=== PATIENT | male | born 1990 | race African-American/Black ===

== ENCOUNTER 2017-12-24 14:42 | Emergency (ER) | payer MEDICAID, OTHER ==
[~2017-12-24] VITALS: Ht 180.3 cm; Wt 63.5 kg
[2017-12-24 14:57] VITALS: BP 140/88
== END 2017-12-24 22:13 | disposition home or self-care (01) ==
LOC: ER 14:42
DX: R51 Headache (principal); G93.89 Other specified disorders of brain; Z87.820 Personal history of traumatic brain injury
CPT/HCPCS: 70450

== ENCOUNTER 2017-12-25 13:13 | Emergency (ER) | payer MEDICAID ==
[~2017-12-25] VITALS: Ht 167.6 cm; Wt 63.5 kg
[2017-12-25] MEDS ORDERED: SODIUM CHLORIDE 0.9% 1,000 ML IV ONE ×2 (13:29)
[2017-12-25] MEDS ORDERED: PROMETHAZINE HCL 25 MG/ML 1ML IV ONE (13:30)
[2017-12-25 13:33] VITALS: BP 104/69
[2017-12-25 15:08] LABS: Albumin 3.5 g/dL (3.4-5.0); Calcium 9.3 mg/dL (8.5-10.1); Potassium 3.6 mmol/L (3.5-5.1)
[2017-12-25 15:10] LABS: Basophils # (auto) 0 uL; Basophils % (auto) 0.4 % (0.0-2.0); Eosinophils # (auto) 0 uL; Eosinophils % (auto) 0.1 % (0.0-7.0); Hematocrit 44.7 % (41.0-53.0); Hemoglobin 15.1 g/dL (13.5-17.5); Lymphocytes # (auto) 1.6 uL; Lymphocytes % (auto) 15.6 % (10.0-50.0); Mean Corpuscular Hemoglobin 29.9 pg (28.0-32.0); Mean Corpuscular Hgb Conc. 33.8 g/dL (32.0-36.0); Mean Corpuscular Volume 88.6 fL (80.0-100.0); Monocytes # (auto) 0.9 uL; Monocytes % (auto) 9.4 % (0.0-12.0); Neutrophils # (auto) 7.5 uL; Neutrophils % (auto) 74.5 % (37.0-80.0); Nucleated Red Blood Cells % 0.1 %; Platelet Count (auto) 315 10^3/uL (140-450); Red Blood Cells 5.04 10^6/uL (4.5-5.90); Red Cell Distribution Width 13.8 % (11.8-14.3)
[2017-12-25 15:13] LABS: Bilirubin, Total 0.6 mg/dL (0.2-1.0); Total Protein 8.4 g/dL (6.4-8.2)
== END 2017-12-25 15:57 | disposition left against medical advice (07) ==
LOC: ER 13:13 → EDBD 13:13 → EDUNIT# 13:13 → ER 15:57
DX: R11.2 Nausea with vomiting, unspecified (principal); R10.13 Epigastric pain; G93.89 Other specified disorders of brain; R51 Headache
CPT/HCPCS: 36415; 70450; 71045; 80053; 85025

== ENCOUNTER 2017-12-25 18:24 | Emergency (ER) | payer MEDICAID ==
[~2017-12-25] VITALS: Ht 180.3 cm; Wt 63.5 kg
[2017-12-25 18:57] VITALS: BP 110/62
== END 2017-12-25 20:20 | disposition left against medical advice (07) ==
LOC: ER 18:24
DX: R51 Headache (principal); R10.9 Unspecified abdominal pain; Z53.21 Procedure and treatment not carried out due to patient leaving prior to being seen by health care provider

== ENCOUNTER 2017-12-26 11:22 | Inpatient (IN) | payer MEDICAID ==
[~2017-12-26] VITALS: Ht 180.3 cm; Wt 59.2 kg
[2017-12-26 12:11] LABS: Basophils # (auto) 0.1 uL; Basophils % (auto) 0.6 % (0.0-2.0); Eosinophils # (auto) 0 uL; Eosinophils % (auto) 0.1 % (0.0-7.0); Hematocrit 43.6 % (41.0-53.0); Hemoglobin 14.6 g/dL (13.5-17.5); Lymphocytes # (auto) 1.2 uL; Lymphocytes % (auto) 12.4 % (10.0-50.0); Mean Corpuscular Hemoglobin 29.6 pg (28.0-32.0); Mean Corpuscular Hgb Conc. 33.5 g/dL (32.0-36.0); Mean Corpuscular Volume 88.2 fL (80.0-100.0); Monocytes # (auto) 1.1 uL; Monocytes % (auto) 11.2 % (0.0-12.0); Neutrophils # (auto) 7.4 uL; Neutrophils % (auto) 75.7 % (37.0-80.0); Platelet Count (auto) 309 10^3/uL (140-450); Red Blood Cells 4.94 10^6/uL (4.5-5.90); Red Cell Distribution Width 13.9 % (11.8-14.3); White Blood Cell 9.7 10^3/uL (4.4-10.8)
[2017-12-26 12:31] LABS: Alanine Aminotransferase 37 U/L (16-61); Albumin 3.3 g/dL (3.4-5.0); Alkaline Phosphatase 69 U/L (45-117); Anion Gap 11 (5-15); Aspartate Aminotransferase 12 U/L (15-37); BUN/Creatinine Ratio 18.1; Bilirubin, Total 0.5 mg/dL (0.2-1.0); Blood Alcohol < 3.0 mg/dL (0-5); Blood Urea Nitrogen 17 mg/dL (7-18); Calcium 8.7 mg/dL (8.5-10.1); Carbon Dioxide 28 mmol/L (21-32); Chloride 103 mmol/L (98-107); GFR African American 123 mL/min; GFR Non-African American 102 mL/min; Glucose 96 mg/dL (74-106); Potassium 3.5 mmol/L (3.5-5.1); Sodium 142 mmol/L (136-145); Total Protein 7.7 g/dL (6.4-8.2)
[2017-12-26] MEDS ORDERED: SODIUM CHLORIDE 0.9% 1,000 ML IVB ONE (12:35)
[2017-12-26] MEDS ORDERED: ONDANSETRON HCL 4 MG/2 ML VIAL ONE (13:06)
[2017-12-26] MEDS ORDERED: ONDANSETRON HCL 4 MG/2 ML VIAL IV ONE (13:15)
[2017-12-26 13:27] LABS: INR 1.69 (0.9-1.15); Partial Thromboplastin Time 39.2 sec (22.64-33.71); Prothrombin Time 18.5 sec (9.37-12.3)
[2017-12-26] MEDS ORDERED: IOHEXOL 300 MG/ML 100ML BOTTLE IJ ONE (13:45)
[2017-12-26] MEDS ORDERED: ENOXAPARIN SOD 80 MG/0.8ML SYRINGE SC ONE (15:00)
[2017-12-26] MEDS ORDERED: MORPHINE SULFATE 4 MG/ML SYR/VIAL IV PRN (15:45)
[2017-12-26] MEDS ORDERED: LORazepam 2MG/ML-1ML VIAL IV PRN (15:45)
[2017-12-26] MEDS ORDERED: NITROGLYCERIN 0.4 MG SL TAB SL PRN (15:45)
[2017-12-26] MEDS ORDERED: DOCUSATE SOD 100 MG CAP PO PRN (15:45)
[2017-12-26] MEDS ORDERED: cefTRIAXone 1GM/10ml IVPUSH 10 ML IV ONE (16:00)
[2017-12-26] MEDS: SODIUM CHLORIDE 0.9% 1,000 ML IV SCH (16:14)
[2017-12-26] MEDS ORDERED: AZITHROMYCIN 500MG/ 250ML 250 ML IV ONE (16:30)
[2017-12-26 16:40] LABS: Urine Bacteria NONE SEEN /hpf (None Seen); Urine Blood Negative /uL (Negative); Urine Mucus FEW (None Seen); Urine WBC 1 /hpf (0 - 3)
[2017-12-26 16:42] LABS: Urine Specific Gravity > 1.050 (1.001-1.035)
[2017-12-26 16:57] LABS: Alcohol, Urine < 3.0 mg/dL (0-5); Amphetamine Screen, Urine NEGATIVE (NEGATIVE); Barbiturate Scree,Urine NEGATIVE (NEGATIVE); Benzodiazephine Screen, Urine NEGATIVE (NEGATIVE); Cannabinoid Screen, Urine POSITIVE (NEGATIVE); Cocaine Screen, Urine NEGATIVE (NEGATIVE); Opiate Scree,Urine POSITIVE (NEGATIVE); Phencyclidine Screen, Urine NEGATIVE (NEGATIVE)
[2017-12-26] MEDS ORDERED: SODIUM CHLORIDE 0.9% 1,000 ML IV ONE (18:15)
[2017-12-26] MEDS ORDERED: HEPARIN Sod PEDiatric flush 10 UNITS/ML 1ML VIAL IV ONE (19:45)
[2017-12-26] MEDS: MORPHINE SULFATE 4 MG/ML SYR/VIAL IV PRN (20:43)
[2017-12-26] MEDS: ONDANSETRON HCL 4 MG/2 ML VIAL IV PRN (20:43)
[2017-12-26] MEDS: FAMOTIDINE 20 MG TAB PO SCH (23:31)
[2017-12-26] MEDS: ENOXAPARIN SOD 60 MG/0.6 ML SYRINGE SC SCH (23:32)
[2017-12-27 07:42] LABS: Hemoglobin 13.6 g/dL (13.5-17.5); Mean Corpuscular Hemoglobin 30.1 pg (28.0-32.0); Mean Corpuscular Volume 88.4 fL (80.0-100.0); Platelet Count (auto) 295 10^3/uL (140-450); Red Blood Cells 4.53 10^6/uL (4.5-5.90); Red Cell Distribution Width 13.6 % (11.8-14.3)
[2017-12-27 07:50] LABS: Albumin 2.9 g/dL (3.4-5.0); BUN/Creatinine Ratio 16.4; Bilirubin, Total 0.5 mg/dL (0.2-1.0); Calcium 8.1 mg/dL (8.5-10.1); Potassium 3.6 mmol/L (3.5-5.1)
[2017-12-27 07:55] LABS: Band Neutrophils % (manual) 0; Basophils % (manual) 0 (0.0-2.0); Blast Cells 0; Eosinophils % (manual) 0 (0-7); Metamyelocytes % 0; Myelocytes % 0; Promyelocytes % 0; Reactive Lymphocytes 0
[2017-12-27] MEDS: cefTRIAXone 1GM/10ml IVPUSH 10 ML IV SCH (08:43)
[2017-12-27] MEDS: SODIUM CHLORIDE 0.9% 1,000 ML IV SCH (08:43)
[2017-12-27] MEDS: AZITHROMYCIN 500MG/ 250ML 250 ML IV SCH (09:38)
[2017-12-27] MEDS: ENOXAPARIN SOD 60 MG/0.6 ML SYRINGE SC SCH (09:44)
[2017-12-27] MEDS: FAMOTIDINE 20 MG TAB PO SCH ×2 (09:44→22:30)
[2017-12-27] MEDS: MULTIPLE VITAMIN TAB PO SCH (09:44)
[2017-12-27] MEDS: HYDROcodone-ACET 5/325MG TAB PO PRN (11:27)
[2017-12-27 13:45] LABS: Lymphocytes % (manual) 19 (10.0-50.0); Monocytes % (manual) 9 (0-12)
[2017-12-27] MEDS: MORPHINE SULFATE 4 MG/ML SYR/VIAL IV PRN (14:07)
[2017-12-27] MEDS: HEPARIN DRIP/D5W 100UNITS/ML 250 ML IV SCH (14:48)
[2017-12-27] MEDS ORDERED: HEPARIN SODIUM (PORCINE) 5000 UNITS/ML 1ML VIAL IV ONE (15:00)
[2017-12-27 15:49] LABS: INR 1.9 (0.9-1.15); Partial Thromboplastin Time 45.7 sec (22.64-33.71); Prothrombin Time 20.8 sec (9.37-12.3)
[2017-12-27 18:21] VITALS: BP 122/79
[2017-12-27 20:00] VITALS: BP 124/56
[2017-12-27] MEDS: ACETAMINOPHEN 325 MG TAB PO PRN (20:49)
[2017-12-27 23:36] LABS: INR 1.76 (0.9-1.15); Prothrombin Time 19.3 sec (9.37-12.3)
[2017-12-27 23:45] LABS: Partial Thromboplastin Time 120.4 sec (22.64-33.71)
[2017-12-28 00:02] VITALS: BP 100/65
[2017-12-28 04:25] VITALS: BP 102/67
[2017-12-28] MEDS: MORPHINE SULFATE 4 MG/ML SYR/VIAL IV PRN (04:31)
[2017-12-28] MEDS: SODIUM CHLORIDE 0.9% 1,000 ML IV SCH ×2 (04:31→17:53)
[2017-12-28 06:45] LABS: Basophils # (auto) 0.1 uL; Basophils % (auto) 1.9 % (0.0-2.0); Eosinophils # (auto) 0.1 uL; Eosinophils % (auto) 1.4 % (0.0-7.0); Hematocrit 38.4 % (41.0-53.0); Lymphocytes # (auto) 1.6 uL; Lymphocytes % (auto) 29.8 % (10.0-50.0); Mean Corpuscular Hemoglobin 29.9 pg (28.0-32.0); Mean Corpuscular Hgb Conc. 33.9 g/dL (32.0-36.0); Mean Corpuscular Volume 88.1 fL (80.0-100.0); Monocytes # (auto) 0.6 uL; Monocytes % (auto) 10.9 % (0.0-12.0); Nucleated Red Blood Cells % 0.2 %; Platelet Count (auto) 233 10^3/uL (140-450); Red Blood Cells 4.36 10^6/uL (4.5-5.90); Red Cell Distribution Width 13.3 % (11.8-14.3); White Blood Cell 5.4 10^3/uL (4.4-10.8)
[2017-12-28 07:00] LABS: Potassium 3.6 mmol/L (3.5-5.1)
[2017-12-28 07:06] LABS: Albumin 2.7 g/dL (3.4-5.0); BUN/Creatinine Ratio 11.3; Calcium 8.4 mg/dL (8.5-10.1)
[2017-12-28 07:27] LABS: Bilirubin, Total 0.6 mg/dL (0.2-1.0); Total Protein 6.7 g/dL (6.4-8.2)
[2017-12-28] MEDS: ACETAMINOPHEN 325 MG TAB PO PRN (07:39)
[2017-12-28 08:20] LABS: INR 1.71 (0.9-1.15); Partial Thromboplastin Time 53.3 sec (22.64-33.71); Prothrombin Time 18.7 sec (9.37-12.3)
[2017-12-28] MEDS: cefTRIAXone 1GM/10ml IVPUSH 10 ML IV SCH (08:38)
[2017-12-28] MEDS: FAMOTIDINE 20 MG TAB PO SCH ×2 (09:36→21:27)
[2017-12-28] MEDS: AZITHROMYCIN 500MG/ 250ML 250 ML IV SCH (09:36)
[2017-12-28] MEDS: MULTIPLE VITAMIN TAB PO SCH (09:36)
[2017-12-28 11:54] VITALS: BP 117/77
[2017-12-28] MEDS: BOOST PLUS 8 ounce PO SCH ×2 (12:00→18:03)
[2017-12-28] MEDS: HYDROcodone-ACET 5/325MG TAB PO PRN ×3 (12:40→22:03)
[2017-12-28 14:19] LABS: INR 1.74 (0.9-1.15); Prothrombin Time 19.1 sec (9.37-12.3)
[2017-12-28 15:56] VITALS: BP 91/50
[2017-12-28] MEDS ORDERED: WARFARIN SODIUM 5 MG TAB PO ONE (17:00)
[2017-12-28 19:50] VITALS: BP 113/70
[2017-12-28] MEDS: HEPARIN DRIP/D5W 100UNITS/ML 250 ML IV SCH (19:53)
[2017-12-28 22:13] LABS: INR 1.72 (0.9-1.15); Partial Thromboplastin Time 40.7 sec (22.64-33.71); Prothrombin Time 18.9 sec (9.37-12.3)
[2017-12-28 23:57] VITALS: BP 91/51
[2017-12-29 03:58] VITALS: BP 108/55
[2017-12-29] MEDS: HYDROcodone-ACET 5/325MG TAB PO PRN ×4 (05:51→19:20)
[2017-12-29 05:52] LABS: Basophils # (auto) 0 uL; Eosinophils # (auto) 0.1 uL; Eosinophils % (auto) 2.8 % (0.0-7.0); Hemoglobin 13.4 g/dL (13.5-17.5); Lymphocytes # (auto) 1.6 uL; Lymphocytes % (auto) 33.1 % (10.0-50.0); Mean Corpuscular Hemoglobin 29.5 pg (28.0-32.0); Mean Corpuscular Hgb Conc. 33.4 g/dL (32.0-36.0); Mean Corpuscular Volume 88.5 fL (80.0-100.0); Monocytes # (auto) 0.6 uL; Monocytes % (auto) 12.1 % (0.0-12.0); Neutrophils # (auto) 2.5 uL; Nucleated Red Blood Cells % 0.2 %; Platelet Count (auto) 267 10^3/uL (140-450); Red Blood Cells 4.52 10^6/uL (4.5-5.90); Red Cell Distribution Width 13.4 % (11.8-14.3)
[2017-12-29 06:03] LABS: INR 1.61 (0.9-1.15); Partial Thromboplastin Time 49.4 sec (22.64-33.71); Prothrombin Time 17.6 sec (9.37-12.3)
[2017-12-29 06:04] LABS: BUN/Creatinine Ratio 12.2; Calcium 8.4 mg/dL (8.5-10.1); Potassium 3.5 mmol/L (3.5-5.1)
[2017-12-29 08:00] VITALS: BP 105/44
[2017-12-29] MEDS: cefTRIAXone 1GM/10ml IVPUSH 10 ML IV SCH (08:20)
[2017-12-29] MEDS: BOOST PLUS 8 ounce PO SCH ×3 (08:20→17:53)
[2017-12-29] MEDS: HEPARIN DRIP/D5W 100UNITS/ML 250 ML IV SCH (08:20)
[2017-12-29] MEDS: MULTIPLE VITAMIN TAB PO SCH (09:52)
[2017-12-29] MEDS: FAMOTIDINE 20 MG TAB PO SCH ×2 (09:52→21:00)
[2017-12-29] MEDS: SODIUM CHLORIDE 0.9% 1,000 ML IV SCH (09:52)
[2017-12-29] MEDS: AZITHROMYCIN 500MG/ 250ML 250 ML IV SCH (09:52)
[2017-12-29 12:00] VITALS: BP 106/59
[2017-12-29 12:57] LABS: INR 1.74 (0.9-1.15); Prothrombin Time 19.1 sec (9.37-12.3)
[2017-12-29] MEDS ORDERED: IOHEXOL 300 MG/ML 100ML BOTTLE IJ ONE (14:49)
[2017-12-29] MEDS: ONDANSETRON HCL 4 MG/2 ML VIAL IV PRN (15:55)
[2017-12-29 16:00] VITALS: BP 114/65
[2017-12-29] MEDS ORDERED: WARFARIN SODIUM 2.5 MG TAB PO ONE (17:00)
[2017-12-29 19:56] VITALS: BP 99/56
[2017-12-29 21:40] LABS: INR 2.09 (0.9-1.15); Partial Thromboplastin Time 54.6 sec (22.64-33.71); Prothrombin Time 22.9 sec (9.37-12.3)
[2017-12-30] VITALS: BP 99/44
[2017-12-30] MEDS: HYDROcodone-ACET 5/325MG TAB PO PRN ×5 (00:35→20:46)
[2017-12-30] MEDS: HEPARIN DRIP/D5W 100UNITS/ML 250 ML IV SCH ×2 (02:45→05:38)
[2017-12-30 04:00] VITALS: BP 108/71
[2017-12-30] MEDS: SODIUM CHLORIDE 0.9% 1,000 ML IV SCH (04:08)
[2017-12-30 05:23] LABS: Hematocrit 39.7 % (41.0-53.0); Hemoglobin 13.4 g/dL (13.5-17.5); Mean Corpuscular Hemoglobin 29.9 pg (28.0-32.0); Mean Corpuscular Hgb Conc. 33.9 g/dL (32.0-36.0); Mean Corpuscular Volume 88.3 fL (80.0-100.0); Platelet Count (auto) 232 10^3/uL (140-450); Red Blood Cells 4.49 10^6/uL (4.5-5.90); Red Cell Distribution Width 13.5 % (11.8-14.3); White Blood Cell 4.2 10^3/uL (4.4-10.8)
[2017-12-30 05:31] LABS: Basophils % (manual) 0 (0.0-2.0); Blast Cells 0; Metamyelocytes % 0; Myelocytes % 0; Promyelocytes % 0; Reactive Lymphocytes 0
[2017-12-30 05:32] LABS: Albumin 2.8 g/dL (3.4-5.0); BUN/Creatinine Ratio 9.9; Calcium 8.2 mg/dL (8.5-10.1); Potassium 4.1 mmol/L (3.5-5.1)
[2017-12-30 05:34] LABS: Bilirubin, Total 0.3 mg/dL (0.2-1.0); Total Protein 6.8 g/dL (6.4-8.2)
[2017-12-30 05:45] LABS: INR 2.93 (0.9-1.15); Prothrombin Time 32.3 sec (9.37-12.3)
[2017-12-30 05:51] LABS: Partial Thromboplastin Time 79.1 sec (22.64-33.71)
[2017-12-30 06:37] LABS: Band Neutrophils % (manual) 1; Eosinophils % (manual) 6 (0-7); Lymphocytes % (manual) 55 (10.0-50.0); Monocytes % (manual) 11 (0-12)
[2017-12-30] MEDS: BOOST PLUS 8 ounce PO SCH ×3 (08:18→17:52)
[2017-12-30] MEDS: cefTRIAXone 1GM/10ml IVPUSH 10 ML IV SCH (10:16)
[2017-12-30] MEDS: ONDANSETRON HCL 4 MG/2 ML VIAL IV PRN ×2 (10:17→15:15)
[2017-12-30] MEDS: FAMOTIDINE 20 MG TAB PO SCH ×2 (11:00→20:45)
[2017-12-30] MEDS: AZITHROMYCIN 250 MG TAB PO SCH (11:00)
[2017-12-30] MEDS: MULTIPLE VITAMIN TAB PO SCH (11:00)
[2017-12-30 11:57] VITALS: BP 104/50
[2017-12-30 16:27] VITALS: BP 103/58
[2017-12-30] MEDS ORDERED: WARFARIN SODIUM 1 MG TAB PO ONE (17:00)
[2017-12-30 21:51] VITALS: BP 110/60
[2017-12-31] MEDS: HYDROcodone-ACET 5/325MG TAB PO PRN ×5 (00:47→20:24)
[2017-12-31 05:18] VITALS: BP 102/51
[2017-12-31] MEDS: SODIUM CHLORIDE 0.9% 1,000 ML IV SCH ×2 (05:45→12:17)
[2017-12-31 06:38] LABS: Basophils # (auto) 0.1 uL; Basophils % (auto) 1.6 % (0.0-2.0); Eosinophils # (auto) 0.2 uL; Eosinophils % (auto) 3.7 % (0.0-7.0); Hematocrit 39.7 % (41.0-53.0); Hemoglobin 13.9 g/dL (13.5-17.5); Lymphocytes # (auto) 1.4 uL; Lymphocytes % (auto) 27.6 % (10.0-50.0); Mean Corpuscular Hemoglobin 30.8 pg (28.0-32.0); Mean Corpuscular Hgb Conc. 34.9 g/dL (32.0-36.0); Mean Corpuscular Volume 88.2 fL (80.0-100.0); Monocytes # (auto) 0.6 uL; Monocytes % (auto) 12.1 % (0.0-12.0); Neutrophils # (auto) 2.8 uL; Nucleated Red Blood Cells % 0.2 %; Platelet Count (auto) 200 10^3/uL (140-450); Red Blood Cells 4.51 10^6/uL (4.5-5.90); Red Cell Distribution Width 13.1 % (11.8-14.3)
[2017-12-31 06:50] LABS: Partial Thromboplastin Time 42.4 sec (22.64-33.71); Prothrombin Time 52.4 sec (9.37-12.3)
[2017-12-31 06:55] LABS: BUN/Creatinine Ratio 13.4; Calcium 8.6 mg/dL (8.5-10.1); Potassium 3.7 mmol/L (3.5-5.1)
[2017-12-31 06:56] LABS: INR 4.73 (0.9-1.15)
[2017-12-31 08:00] VITALS: BP 124/78
[2017-12-31] MEDS: BOOST PLUS 8 ounce PO SCH ×3 (08:40→18:07)
[2017-12-31] MEDS: AZITHROMYCIN 250 MG TAB PO SCH (09:10)
[2017-12-31] MEDS: cefTRIAXone 1GM/10ml IVPUSH 10 ML IV SCH (09:10)
[2017-12-31] MEDS: MULTIPLE VITAMIN TAB PO SCH (09:10)
[2017-12-31] MEDS: FAMOTIDINE 20 MG TAB PO SCH ×2 (09:10→21:55)
[2017-12-31 12:00] VITALS: BP 104/61
[2017-12-31 13:26] LABS: Prothrombin Time 60.3 sec (9.37-12.3)
[2017-12-31 13:27] LABS: INR 5.44 (0.9-1.15)
[2017-12-31] MEDS: ONDANSETRON HCL 4 MG/2 ML VIAL IV PRN (17:18)
[2017-12-31 17:30] VITALS: BP 127/64
[2017-12-31] MEDS ORDERED: LORazepam 2MG/ML-1ML VIAL IV PRN (18:30)
[2017-12-31 22:00] VITALS: BP 127/75
[2018-01-01] MEDS: SODIUM CHLORIDE 0.9% 1,000 ML IV SCH (04:57)
[2018-01-01 05:00] VITALS: BP 109/71
[2018-01-01] MEDS: HYDROcodone-ACET 5/325MG TAB PO PRN ×3 (06:27→18:30)
[2018-01-01 06:54] LABS: INR 2.79 (0.9-1.15); Partial Thromboplastin Time 43.7 sec (22.64-33.71); Prothrombin Time 30.7 sec (9.37-12.3)
[2018-01-01 07:08] LABS: Basophils # (auto) 0.1 uL; Eosinophils # (auto) 0.1 uL; Eosinophils % (auto) 2.2 % (0.0-7.0); Hematocrit 41.4 % (41.0-53.0); Hemoglobin 14.1 g/dL (13.5-17.5); Lymphocytes # (auto) 1.4 uL; Mean Corpuscular Hemoglobin 29.8 pg (28.0-32.0); Mean Corpuscular Hgb Conc. 34.1 g/dL (32.0-36.0); Mean Corpuscular Volume 87.6 fL (80.0-100.0); Monocytes # (auto) 0.8 uL; Monocytes % (auto) 12.2 % (0.0-12.0); Neutrophils # (auto) 3.9 uL; Neutrophils % (auto) 62.6 % (37.0-80.0); Nucleated Red Blood Cells % 0.1 %; Platelet Count (auto) 190 10^3/uL (140-450); Red Blood Cells 4.72 10^6/uL (4.5-5.90); Red Cell Distribution Width 13.3 % (11.8-14.3); White Blood Cell 6.2 10^3/uL (4.4-10.8)
[2018-01-01 08:00] VITALS: BP 121/70
[2018-01-01] MEDS: BOOST PLUS 8 ounce PO SCH ×3 (08:05→18:07)
[2018-01-01] MEDS: MULTIPLE VITAMIN TAB PO SCH (09:41)
[2018-01-01] MEDS: AZITHROMYCIN 250 MG TAB PO SCH (09:43)
[2018-01-01] MEDS: cefTRIAXone 1GM/10ml IVPUSH 10 ML IV SCH (09:44)
[2018-01-01] MEDS: FAMOTIDINE 20 MG TAB PO SCH ×2 (09:44→21:25)
[2018-01-01] MEDS: ONDANSETRON HCL 4 MG/2 ML VIAL IV PRN (10:43)
[2018-01-01 12:00] VITALS: BP 122/73
[2018-01-01] MEDS ORDERED: MORPHINE SULFATE 8mg/ml INJ SDV IV PRN (16:45)
[2018-01-01 17:00] VITALS: BP 113/66
[2018-01-01] MEDS ORDERED: WARFARIN SODIUM 2.5 MG TAB PO ONE (17:00)
[2018-01-01 21:48] VITALS: BP 116/67
[2018-01-02 04:37] VITALS: BP 117/70
[2018-01-02] MEDS: HYDROcodone-ACET 5/325MG TAB PO PRN ×2 (05:00→17:48)
[2018-01-02 07:03] LABS: Basophils # (auto) 0.1 uL; Basophils % (auto) 1.3 % (0.0-2.0); Eosinophils # (auto) 0.1 uL; Eosinophils % (auto) 2.3 % (0.0-7.0); Hematocrit 42.6 % (41.0-53.0); Hemoglobin 14.9 g/dL (13.5-17.5); Lymphocytes # (auto) 1.9 uL; Lymphocytes % (auto) 32.7 % (10.0-50.0); Mean Corpuscular Hemoglobin 30.4 pg (28.0-32.0); Mean Corpuscular Volume 86.9 fL (80.0-100.0); Monocytes # (auto) 0.7 uL; Monocytes % (auto) 12.1 % (0.0-12.0); Neutrophils % (auto) 51.6 % (37.0-80.0); Nucleated Red Blood Cells % 0.1 %; Platelet Count (auto) 199 10^3/uL (140-450); Red Cell Distribution Width 13.3 % (11.8-14.3); White Blood Cell 5.9 10^3/uL (4.4-10.8)
[2018-01-02 07:13] LABS: INR 2.27 (0.9-1.15); Partial Thromboplastin Time 45.4 sec (22.64-33.71)
[2018-01-02] MEDS: BOOST PLUS 8 ounce PO SCH ×3 (08:00→18:00)
[2018-01-02 09:08] VITALS: BP 110/78
[2018-01-02] MEDS: FAMOTIDINE 20 MG TAB PO SCH ×2 (09:24→21:44)
[2018-01-02] MEDS: AZITHROMYCIN 250 MG TAB PO SCH (09:24)
[2018-01-02] MEDS: cefTRIAXone 1GM/10ml IVPUSH 10 ML IV SCH (09:24)
[2018-01-02] MEDS: MULTIPLE VITAMIN TAB PO SCH (09:24)
[2018-01-02 13:00] VITALS: BP 108/74
[2018-01-02 16:54] VITALS: BP 123/72
[2018-01-02] MEDS ORDERED: WARFARIN SODIUM 2 MG TAB PO ONE (17:00)
[2018-01-02] MEDS ORDERED: METOPROLOL TARTRATE 25 MG TAB PO ONE (17:30)
[2018-01-02] MEDS ORDERED: POTASSIUM CHL 20 Meq TABLET PO ONE (17:30)
[2018-01-02 18:16] LABS: Albumin 3.6 g/dL (3.4-5.0); Bilirubin, Total 0.5 mg/dL (0.2-1.0); Calcium 9.3 mg/dL (8.5-10.1); Potassium 4.3 mmol/L (3.5-5.1); Total Protein 8.2 g/dL (6.4-8.2)
[2018-01-02] MEDS: METOPROLOL TARTRATE 25 MG TAB PO SCH (21:44)
[2018-01-02 22:00] VITALS: BP 107/70
[2018-01-03 05:00] VITALS: BP 89/46
[2018-01-03 05:59] LABS: Basophils # (auto) 0 uL; Basophils % (auto) 0.8 % (0.0-2.0); Eosinophils # (auto) 0.2 uL; Eosinophils % (auto) 3.6 % (0.0-7.0); Hematocrit 45.4 % (41.0-53.0); Hemoglobin 15.5 g/dL (13.5-17.5); Lymphocytes # (auto) 2.2 uL; Lymphocytes % (auto) 39.9 % (10.0-50.0); Mean Corpuscular Hemoglobin 29.8 pg (28.0-32.0); Mean Corpuscular Hgb Conc. 34.1 g/dL (32.0-36.0); Mean Corpuscular Volume 87.4 fL (80.0-100.0); Monocytes # (auto) 0.8 uL; Monocytes % (auto) 14.1 % (0.0-12.0); Neutrophils # (auto) 2.3 uL; Neutrophils % (auto) 41.6 % (37.0-80.0); Nucleated Red Blood Cells % 0.1 %; Platelet Count (auto) 212 10^3/uL (140-450); Red Blood Cells 5.19 10^6/uL (4.5-5.90); Red Cell Distribution Width 13.6 % (11.8-14.3); White Blood Cell 5.4 10^3/uL (4.4-10.8)
[2018-01-03 06:12] LABS: INR 1.73 (0.9-1.15); Prothrombin Time 17.9 sec (9.27-12.13)
[2018-01-03] MEDS: HYDROcodone-ACET 5/325MG TAB PO PRN ×2 (07:02→21:47)
[2018-01-03] MEDS: BOOST PLUS 8 ounce PO SCH ×3 (08:00→18:00)
[2018-01-03 09:23] VITALS: BP 116/71
[2018-01-03] MEDS: METOPROLOL TARTRATE 25 MG TAB PO SCH ×2 (10:00→21:47)
[2018-01-03] MEDS: AZITHROMYCIN 250 MG TAB PO SCH (10:15)
[2018-01-03] MEDS: MULTIPLE VITAMIN TAB PO SCH (10:15)
[2018-01-03] MEDS: FAMOTIDINE 20 MG TAB PO SCH ×2 (10:15→21:47)
[2018-01-03] MEDS: ENOXAPARIN SOD 100 MG/1 ML SYRINGE SC SCH ×2 (10:16→21:48)
[2018-01-03] MEDS: cefTRIAXone 1GM/10ml IVPUSH 10 ML IV SCH (10:30)
[2018-01-03 12:33] VITALS: BP 103/70
[2018-01-03] MEDS: ONDANSETRON HCL 4 MG/2 ML VIAL IV PRN (15:36)
[2018-01-03 17:00] VITALS: BP 111/70
[2018-01-03] MEDS ORDERED: WARFARIN SODIUM 2 MG TAB PO ONE (17:00)
[2018-01-03 22:00] VITALS: BP 103/56
[2018-01-04 05:00] VITALS: BP 104/55
[2018-01-04 07:07] LABS: INR 1.75 (0.9-1.15); Partial Thromboplastin Time 52.5 sec (23.78-33.04); Prothrombin Time 18.1 sec (9.27-12.13)
[2018-01-04] MEDS: BOOST PLUS 8 ounce PO SCH ×3 (08:00→18:00)
[2018-01-04 09:00] VITALS: BP 120/78
[2018-01-04] MEDS: FAMOTIDINE 20 MG TAB PO SCH (10:14)
[2018-01-04] MEDS: MULTIPLE VITAMIN TAB PO SCH (10:14)
[2018-01-04] MEDS: cefTRIAXone 1GM/10ml IVPUSH 10 ML IV SCH (10:14)
[2018-01-04] MEDS: AZITHROMYCIN 250 MG TAB PO SCH (10:14)
[2018-01-04] MEDS: METOPROLOL TARTRATE 25 MG TAB PO SCH (10:15)
[2018-01-04] MEDS: ENOXAPARIN SOD 100 MG/1 ML SYRINGE SC SCH (10:15)
[2018-01-04 13:00] VITALS: BP 103/73
[2018-01-04] MEDS ORDERED: WARFARIN SODIUM 1 MG TAB PO ONE (15:15)
[2018-01-04 17:00] VITALS: BP 102/62
[2018-01-04] MEDS ORDERED: WARFARIN SODIUM 2 MG TAB PO ONE (17:00)
[2018-01-04 17:39] VITALS: BP 102/62
== END 2018-01-04 18:25 | disposition home or self-care (01) | DRG 58 ==
LOC: EDUNIT# 11:22 → ER 11:22 → EDBD 11:22 → OVERFLOW 11:23 → DOU IN ICU 12-27 17:40 → TELE-CENTR 12-30 14:16
PROVIDERS: ADMIT Internal Medicine; ATTEND Internal Medicine
DX: G08 Intracranial and intraspinal phlebitis and thrombophlebitis (principal); J69.0 Pneumonitis due to inhalation of food and vomit; G93.41 Metabolic encephalopathy; E44.0 Moderate protein-calorie malnutrition; E83.41 Hypermagnesemia; D68.9 Coagulation defect, unspecified; R55 Syncope and collapse; E86.0 Dehydration; F17.210 Nicotine dependence, cigarettes, uncomplicated; G93.2 Benign intracranial hypertension; Z87.820 Personal history of traumatic brain injury; Z68.1 Body mass index [BMI] 19.9 or less, adult; Z79.01 Long term (current) use of anticoagulants
CPT/HCPCS: 36415; 70450; 70460; 70545; 71045; 71046; 71260; 74177; 80048; 80053; 80307; 80320; 81001; 81241; 83735; 85007; 85025; 85027; 85301; 85302; 85303; 85305; 85306; 85610; 85613; 85670; 85705; 85730; 85732; 86147; 87040; 87081; 95819; 96365; 96372; 96375; G0378; J2405